=== PATIENT | male | born 1995 | race African-American/Black ===

== ENCOUNTER 2018-06-21 02:29 | Inpatient (IN) | payer OTHER ==
[~2018-06-21] VITALS: Ht 175.3 cm; Wt 108.3 kg
[2018-06-21] VITALS (528 sets, daily range): BP systolic 113–139; BP diastolic 50–83; PULSE 61–73; TEMP 97.5–98.5; O2SAT 95–100
[~2018-06-21 02:29] MED LIST: LEXAPRO 10MG10 MG PO
[2018-06-21] MEDS ORDERED: BUSPAR 30MG30 MG/TAB PO (03:05)
[2018-06-21] MEDS ORDERED: PROZAC 10MG10 MG PO (03:05)
[2018-06-21] MEDS ORDERED: MULTI VITAMINS1 TAB PO (03:05)
[2018-06-21 03:21] LABS: COLLECTION METHOD CLEAN CATCH
[2018-06-21 03:24] LABS: BASO % 0.6 % (0.0-2.0); EOS # 0.1 (0.0-0.7); EOS % 2.5 % (0-4.0); GRAN # 2.5 (1.4-6.5); HEMATOCRIT 44.5 % (42.0-52.0); HEMOGLOBIN 15.4 g/dl (13.5-18.0); LYMPH # 1.8 (1.2-3.4); LYMPH % 36.9 % (20.0-51.0); MEAN CELL VOLUME 86 fl (80.0-100.0); MEAN CORPUSCULAR HEMOGLOBIN 30 pg (27.0-31.0); MEAN CORPUSCULAR HGB CONC 35 g/dl (33.0-37.0); MEAN PLATELET VOLUME 10.2 fl (7.4-10.4); MONO # 0.4 (0.1-0.6); PLATELET COUNT 194 K/mm3 (130-400); RED BLOOD COUNT 5.17 M/mm3 (4.20-5.60); REDCELL DISTRIBUTION WIDTH-CV 12.3 % (11.5-14.5)
[2018-06-21 03:33] LABS: PH 6 (5-8); SQUAMOUS EPITHELIAL 0-2 /hpf; URINE APPEARANCE Clear; URINE BACTERIA None Seen /hpf; URINE BILIRUBIN Negative (NEGATIVE); URINE BLOOD Negative (NEGATIVE); URINE COLOR Yellow; URINE GLUCOSE Negative (NEGATIVE); URINE KETONE Negative (NEGATIVE); URINE LEUKOCYTE ESTERASE Negative (NEGATIVE); URINE NITRATE Negative (NEGATIVE); URINE PROTEIN(semi-quant) Negative (NEGATIVE); URINE RBC 0-2 /hpf; URINE UROBILINOGEN Negative (NEGATIVE)
[2018-06-21 03:36] LABS: TRICYCLIC ANTIDEPRESS URINE NEGATIVE
[2018-06-21 03:37] LABS: ALANINE AMINOTRANSFERASE 32 U/L (21-72); ALBUMIN 4.2 gm/dL (3.5-5.0); ALKALINE PHOSPHATASE 70 U/L (50-136); ANION GAP 10 mmol/L (7-16); AST,SGOT 35 U/L (15-37); BILIRUBIN,TOTAL 0.6 mg/dL (0.0-1.0); BLOOD UREA NITROGEN 15 mg/dL (9-20); CALCIUM 9.1 mg/dL (8.4-10.2); CARBON DIOXIDE 25 mmol/L (22-30); CHLORIDE 105 mmol/L (98-107); CREATININE, serum 1.12 mg/dL (0.66-1.25); GLUCOSE 94 mg/dL (74-106); POTASSIUM 3.8 mmol/L (3.4-5.0); SODIUM 140 mmol/L (137-145); TOTAL PROTEIN 7.1 gm/dL (6.4-8.2)
[2018-06-21 03:48] LABS: ACETAMINOPHEN < 10 ug/mL (10-30); ALCOHOL(ethanol),MEDICAL < 10 mg/dL; SALICYLATE < 1.0 mg/dL
--- NOTE | 2018-06-21 10:37 | NUR ---
REPORT RECEIVED FROM KIMMIE IN ED.
--- NOTE | 2018-06-21 13:15 | NUR ---
Patient lives along in [place], [place] and plans to discharge back home upon recovery. Patient has a history of depression and anxiety but overall is independent with daily living activities, he does not have any durable medical equipment usage or needs, his primary care physician/medical care are from [facility], his pharamcy is [facility] [employer], and he does not have advance directives completed at this time. Patient's mother (Zeny) is supportive as needed and her contact number is [phone]. environmental services technician will follow as needed.
--- NOTE | 2018-06-21 19:34 | NUR ---
Report received from [facility]. Resting in bed watching TV. Denies needs at this time.
--- NOTE | 2018-06-21 21:33 | NUR ---
Resting in bed. Assessment complete. Lungs clear. Heart sounds normal. Bowels active x4. No edema noted. Denies pain. IV NS infusing at 125ml/hr into left wrist. Provided with sandwich. Patient mood stable. Reports "I did not take those medications to kill myself, I just wanted to be numb." Requesting early psych consult due to college exam in AM. Denies other needs. Call light in reach.
[2018-06-22] VITALS (378 sets, daily range): BP systolic 115–122; BP diastolic 53–70; PULSE 64–86; TEMP 98.2; O2SAT 96–100
--- NOTE | 2018-06-22 00:27 | NUR ---
Resting in bed watching television. Denies needs. Denies pain. Will monitor.
--- NOTE | 2018-06-22 02:04 | NUR ---
Asleep in bed at this time.
--- NOTE | 2018-06-22 04:20 | NUR ---
Resting in bed asleep at this time.
[2018-06-22 05:57] LABS: BASO % 0.4 % (0.0-2.0); EOS # 0.1 (0.0-0.7); GRAN # 2.7 (1.4-6.5); GRAN % 53.3 % (42.2-75.2); HEMATOCRIT 43.3 % (42.0-52.0); HEMOGLOBIN 14.8 g/dl (13.5-18.0); LYMPH # 1.9 (1.2-3.4); LYMPH % 37.2 % (20.0-51.0); MEAN CELL VOLUME 87 fl (80.0-100.0); MEAN CORPUSCULAR HEMOGLOBIN 30 pg (27.0-31.0); MEAN CORPUSCULAR HGB CONC 34 g/dl (33.0-37.0); MEAN PLATELET VOLUME 10.1 fl (7.4-10.4); MONO # 0.4 (0.1-0.6); MONO % 6.9 % (1.7-9.3); PLATELET COUNT 193 K/mm3 (130-400); RED BLOOD COUNT 4.96 M/mm3 (4.20-5.60); REDCELL DISTRIBUTION WIDTH-CV 12.6 % (11.5-14.5)
[2018-06-22 06:11] LABS: ALBUMIN 3.4 gm/dL (3.5-5.0); BILIRUBIN,TOTAL 0.4 mg/dL (0.0-1.0); CALCIUM 8.7 mg/dL (8.4-10.2); CREATININE, serum 1.09 mg/dL (0.66-1.25); POTASSIUM 3.7 mmol/L (3.4-5.0); TOTAL PROTEIN 5.9 gm/dL (6.4-8.2)
--- NOTE | 2018-06-22 07:15 | NUR ---
BEDSIDE REPORT RECEIVED FROM [facility]. PATIENT SLEEPING IN BED WITH NO C/O. VS WNL ON MONITOR. WILL CONTINUE TO MONITOR.
--- NOTE | 2018-06-22 09:05 | NUR ---
SPOKE WITH DR. DUNCAN REGARDING PSYCH SCREEN AND IF I CAN CALL FOR ONE. EKG COMPLETED. UPDATE CALLED TO POISON CONTROL AND AWAITING RESPONSE FROM POISON CONTROL AFTER SHE CONFERS WITH POSTAL SUPERINTENDENT. IF POISON CONTROL STATES THAT PATIENT IS CLEARED, THEN I WILL CALL [facility] FOR PSYCHIATRIC SCREEN.
--- NOTE | 2018-06-22 10:00 | NUR ---
[facility] HERE TO SEE PATIENT
--- NOTE | 2018-06-22 11:50 | NUR ---
Initial visit; Patient thanked Store Operations Associate for looking in on him and offering encouragement and God's blessings.
--- NOTE | 2018-06-22 11:51 | NUR ---
MOHIT attended clinical rounds. A [facility] screener met with the patient and that screener will be making a follow up appointment for the patient at [facility]. The patient is to discharge back home today, 06/22. Transportation to be provided by a friend. The patient is a student at [employer]. MOHIT asked the patient if he would like for MOHIT to notify [employer]. The patient was not interested in this and informed MOHIT that he had already informed his professor. No additional needs at this time.
--- NOTE | 2018-06-22 12:30 | NUR ---
DISCHARGE PACKET REVIEWED, EDUCATIONAL HANDOUTS ON DEPRESSION AND SUICIDE PREVENTION REVIEWED. FOLLOW UP WITH [facility] REVIEWED. CRISIS HOTLINE PHONE NUMBER DISCUSSED. PATIENT EDUCATED ON TAKING HIS PRESCRIBED MEDICATIONS APPROPRIATELY AND WHEN TO SEEK OUT HELP. PATIENT VERBALIZED UNDERSTANDING. HE AMBULATES OUT TO ED ENTRANCE WITH THIS RN. HIS FRIEND PICKS HIM UP TO TAKE HIM HOME.
== END 2018-06-22 12:41 | disposition home or self-care (01) | DRG 918 ==
LOC: COL.ER 02:29 → ICU 08:22
PROVIDERS: Emergency Medicine; ADMIT Hospitalist
DX: T43.222A Poisoning by selective serotonin reuptake inhibitors, intentional self-harm, initial encounter (principal); T39.312A Poisoning by propionic acid derivatives, intentional self-harm, initial encounter; F41.8 Other specified anxiety disorders
CPT/HCPCS: 99222-AI; 99239; J1644; J7030; J7060